=== PATIENT | male | born 1960 | race Caucasian/White ===

== ENCOUNTER → 2017-08-15 | Outpatient (CLI) | payer OTHER ==
[~2017-08-15] MED LIST: HYG/25 PO; LISI-461 PO; NRV5 PO
--- NOTE | 2017-08-15 09:14 | DIAGNOSTIC IMAGING REPORT ---
ULTRASOUND RIGHT UPPER QUADRANT ABDOMEN CLINICAL HISTORY: Right upper quadrant abdominal pain. COMPARISON STUDY: No priors. TECHNIQUE: Real-time, grayscale, and color flow sonography of the right upper quadrant of the abdomen was performed. Images are reviewed in the transverse and longitudinal planes. FINDINGS: Liver: The liver is enlarged and demonstrates heterogeneously increased echotexture consistent with hepatic steatosis. Fatty sparing is seen adjacent to gallbladder fossa. There is no intrahepatic biliary ductal dilatation. The main portal vein is patent. Gallbladder: The gallbladder is normal in appearance. No gallstones are identified. There is no gallbladder wall thickening or pericholecystic fluid. A sonographic Oneil's sign is reportedly absent. The common bile duct measures up to 0.7 cm in diameter. Pancreas: Visualized portions of the pancreatic head and body are normal in appearance. Right kidney: Survey images of the right kidney demonstrate normal size and echotexture. There is no hydronephrosis. Ascites: None. IMPRESSION: 1. No acute sonographic abnormality is identified in the right upper quadrant. No gallstones are seen. 2. Hepatomegaly and hepatic steatosis. Electronically signed by: Giovanni Yates M.D. 08/15/2017 9:12 AM Dictated Date/Time: 08/15/2017 9:11 AM
== END | disposition home or self-care (01) ==
LOC: C.ULTR 08:38
PROVIDERS: ATTEND Family Medicine
DX: R10.11 Right upper quadrant pain (principal); R16.0 Hepatomegaly, not elsewhere classified; K76.0 Fatty (change of) liver, not elsewhere classified

== ENCOUNTER → 2017-11-09 | Outpatient (CLI) | payer OTHER ==
--- NOTE | 2017-11-09 11:45 | DIAGNOSTIC IMAGING REPORT ---
R SHOULDER MIN 2 VIEWS ROUTINE CLINICAL HISTORY: Right shoulder pain. COMPARISON: None FINDINGS: There is evidence for previous distal right clavicular resection. No fracture or suspicious lesion is present. There is mild osteoarthritis of the right glenohumeral joint. A few calcific densities which measure up to 4 mm are noted along the superolateral aspect of the right humeral head. IMPRESSION: 1. No acute fracture or dislocation of the right shoulder. 2. Mild osteoarthritis of the right glenohumeral joint. 3. A few small calcific densities along the superolateral aspect of the right humeral head which may reflect calcific tendinitis. Electronically signed by: Kolton Newby M.D. 11/09/2017 11:43 AM Dictated Date/Time: 11/09/2017 11:42 AM
== END | disposition home or self-care (01) ==
LOC: C.RAD1850 11:24
PROVIDERS: ATTEND Family Medicine
DX: M25.511 Pain in right shoulder (principal)

== ENCOUNTER → 2017-11-11 | Outpatient (CLI) | payer OTHER | END | disposition home or self-care (01) | LOC: C.RDSM 12:35 | PROVIDERS: ATTEND Physical Medicine & Rehabilitation Sports Medicine | DX: M25.511 Pain in right shoulder (principal); Z88.8 Allergy status to other drugs, medicaments and biological substances ==

== ENCOUNTER 2018-01-17 17:27 | Emergency (ER) | payer OTHER ==
[~2018-01-17] VITALS: Ht 175.3 cm; Wt 77.0 kg
[2018-01-17 17:51] VITALS: TEMP 37.2; Ht 175.3 cm; Wt 77.0 kg
[2018-01-17] MEDS ORDERED: CEPHALEXIN MONOHYDRATE 250 MG CAP PO STA (18:07)
[2018-01-17] MEDS ORDERED: LIDOCAINE 1% BUFFERED INJ 5 ML VIAL INFIL STA (18:07)
--- NOTE | 2018-01-17 18:52 | EMERGENCY ROOM VISIT NOTE ---
ED Visit Note First contact with patient: 18:03 Chief Complaint: "Cut hand". History of Present Illness: This patient is a 57-year-old male who presents to the Emergency Department via private vehicle for evaluation of their right proximal first digit/palmar region laceration. Patient sustained the laceration while attempting to clean a garden tool. They report a moderate amount of bleeding initially. They deny any numbness or tingling into the distal extremity. They report no decreased range of motion of the affected digit. Patient rates his current discomfort as a 2/10. Patient's Tetanus status is believed to be currently up-to-date. Medications: as noted below Allergies: as noted below PMH: non contributory SHx: Pt. lives locally ROS: All pertinent positive and negative review of systems are appropriately documented in the History of Present Illness. Physical Exam: VITAL SIGNS - Vital signs and nursing notes were reviewed. Stable. GENERAL - 57-year-old male appearing his stated age who is in no acute distress. Communicates well with provider and answers questions appropriately. SKIN - There is a 2 cm long laceration noted on the dorsal aspect of R 1st digit at the base near the palm. The edges gape apart with traction. No foreign bodies appreciated. Upon further examination there are no deep structures including vessel, tendon, or bony structures appreciated. There is no active bleeding noted. MUSCULOSKELETAL - Laceration as described above. Full range of motion of the affected digit. NEUROLOGIC - Spinothalamic tract was found to be intact with ability to discriminate sharp versus dull sensation. No sensory defects of the dorsal column were appreciated utilizing light touch for evaluation. VASCULAR - Capillary refill was brisk. ED Course: Patient was seen and evaluated by myself. Risks and benefits of performing primary wound closure versus no repair were discussed with the patient who verbalizes understanding. Verbal consent was obtained prior to performing the procedure. 3 cc of 1% buffered lidocaine was used to perform local anesthesia of the right 1st digit. The wound was cleansed and prepped in the typical sterile fashion utilizing normal saline and Betadine. The wound was sterilely draped. Once proper anesthetization was established, the wound was further examined and demonstrated no deep involvement. The wound was copiously irrigated with normal saline and Betadine. The wound was closed using 4 simple, 5-0 nylon sutures with the wound edges being well approximated. Patient tolerated the procedure well. No complications were met. The wound was cleansed and dressed with a Bacitracin dressing. Keflex 500mg po x 1 due to mechanism. A metal splint was applied to the finger for comfort. Patient educated on worrisome symptoms for return visit to the Emergency Department. Patient discharged to home in good condition. In the evaluation and treatment of this patient, the following differential diagnoses were considered: Finger Fracture, Finger Dislocation, Finger Sprain, Finger Contusion, Jersey Finger, or Mallet Finger. Current/Historical Medications Scheduled Amlodipine Besylate (Amlodipine Besylate), 5 MG PO DAILY Chlorthalidone (Hygroton), 12.5 MG PO QAM Lisinopril (Lisinopril), 10 MG PO DAILY Allergies Coded Allergies: Citalopram (Unverified Allergy, Unknown, GI SYMPTOMS, 08/24/16) Mirtazapine (Unverified Allergy, Unknown, GI SYMPTOMS, 08/24/16) Vital Signs Date Time Temp Pulse Resp B/P (MAP) Pulse Ox O2 Delivery O2 Flow Rate FiO2 01/17/18 19:04 60 18 133/87 96 Room Air 01/17/18 17:51 37.2 58 18 169/96 97 Room Air Medications Administered Medications (Trade) Dose Ordered Sig/Claudio Route Start Time Stop Time Status Last Admin Dose Admin Lidocaine HCl (Buffered Lidocaine 1% Inj) 20 ml ONE STAT INFIL 01/17/18 18:07 01/17/18 18:08 DC 01/17/18 18:32 20 ML Cephalexin Monohydrate (Keflex Cap) 500 mg NOW STAT PO 01/17/18 18:07 01/17/18 18:08 DC 01/17/18 18:33 500 MG Departure Information Impression Primary Impression: Laceration Dispostion Home / Self-Care Condition GOOD Referrals Herb Murphy M.D. (PCP) Patient Instructions My [facility] Additional Instructions Discharge Instructions: You have received 4 sutures on your finger. These sutures are NOT dissolvable and WILL need to be removed by a health care provider in 14 days. You can return to the Emergency Department or contact your Primary Care Provider to have the sutures removed. Please wear the splint for comfort until the sutures are removed. Proper wound care is essential for adequate wound healing and infection prevention. You can shower and clean the wound with soap and water. Do not scour over the wound, pat dry with a towel. Do not submerse the wound (i.e. bathe or dish wash) until the sutures have been removed. You can use an antibiotic ointment with a dressing over the wound for the next 3-4 days. After this time you may leave the wound dry and open to the air. If crust develops over the wound you can use a Q-tip to apply a 1:1 peroxide:water solution to clean the wound. Look for signs of infection of the wound including: increased pain, swelling, foul discharge, streaking, or increased temperature. If any of these are noticed you should return to the Emergency Department for further assessment and treatment. As with any laceration you may have received nerve damage to the surrounding tissues. This damage may or may not be permanent. You should keep the area covered with sunscreen for the first 6 months to 1 year when at risk for exposure to help minimize scarring. You can also use scar reducing creams or Vitamin E oil to help minimize scarring. For pain control, you can use the following [id number] medicines (if >12 yo): - Regular strength (325mg/tab) Tylenol (acetaminophen) 2 tabs every 4-6 hours as needed. Do not exceed 12 tablets in a 24 hour period. Avoid taking more than 3 grams (3000 mg) of Tylenol per day. This includes any other sources of acetaminophen you may take on a regular basis. - Regular strength (200 mg/tab) Advil (ibuprofen) 1-2 tabs every 4-6 hours as needed. Do not exceed a dose of 3200 mg per day. Return to the emergency department if your symptoms worsen despite treatment course outlined above.
[2018-01-17 19:04] VITALS: BP 133/87; PULSE 60; O2SAT 96
== END 2018-01-17 19:07 | disposition home or self-care (01) ==
LOC: C.EDB 17:28 → C.EDD 19:07
DX: S61.210A Laceration without foreign body of right index finger without damage to nail, initial encounter (principal); W27.8XXA Contact with other nonpowered hand tool, initial encounter

== ENCOUNTER → 2018-05-01 | Outpatient (CLI) | payer OTHER ==
--- NOTE | 2018-05-08 13:04 | POLYSOMNOGRAPH REPORT ---
CLINICAL DATA: A 57-year-old male with BMI of [address] Herb Murphy with episodes of awakening gasping for breath and unable to breathe. He has a history of snoring. On the evening of 05/01/2018, a home sleep apnea test was performed using a [employer] type 3 monitor. RECORDING RESULTS: Total recording time was 10 hours. The patient's monitoring time and estimated sleep time was 8.6 hours. RESPIRATORY DATA: Very mild sleep apnea was documented. The DARLYN was 5.6. There were 11 obstructive and 4 central apneic episodes. There were 33 hypopneic episodes. The longest respiratory event was 54 seconds. OXIMETRY DATA: Transient hypoxemia was seen. Oxygen peterson was 79%. Mean saturation was 94%. Time below 89% was 1 minute. HEART RATE DATA: Heart rates ranged from 36-45 beats per minute. SNORING DATA: Snoring was recorded throughout the night. IMPRESSION: Very mild sleep apnea/hypopnea with an DARLYN of 5.6. RECOMMENDATIONS: The patient may benefit from weight loss, use of an oral appliance, or repeat sleep study with CPAP. Clinical correlation is needed. RAD
== END | disposition home or self-care (01) ==
LOC: C.NEUR 08:35
PROVIDERS: ATTEND Family Medicine
DX: I10 Essential (primary) hypertension (principal); R06.83 Snoring; G47.30 Sleep apnea, unspecified